=== PATIENT | female | born 1995 | race Caucasian/White ===

== ENCOUNTER 2017-01-03 22:49 | Emergency (ER) | payer OTHER ==
[2017-01-03 23:10] VITALS: BP 108/66
== END 2017-01-04 01:51 | disposition home or self-care (01) ==
LOC: ED 22:49
DX: N76.0 Acute vaginitis (principal); L73.9 Follicular disorder, unspecified
CPT/HCPCS: 87491; 87591

== ENCOUNTER 2017-06-23 10:50 | Emergency (ER) | payer OTHER ==
[~2017-06-23] VITALS: Ht 160 cm; Wt 75.8 kg
[2017-06-23 12:13] LABS: microscopic required? NO
[2017-06-23 12:25] LABS: BASOPHIL % 0.4 % (0-2); PLATELET COUNT 230 x10^3mcL (130-400); RED CELL DISTRIBUTION WIDTH 13.6 % (11.5-14.5)
[2017-06-23 13:08] LABS: UA SPECIFIC GRAVITY 1.015 (1.005-1.035); urine erythrocyte NEGATIVE (NEGATIVE)
[2017-06-23 14:36] VITALS: BP 104/59
== END 2017-06-23 14:36 | disposition home or self-care (01) ==
LOC: ED 10:50
PROVIDERS: Emergency Medicine
DX: O20.0 Threatened abortion (principal); Z3A.08 8 weeks gestation of pregnancy
CPT/HCPCS: 36415